=== PATIENT | female | born 2005 | race Two or more races ===

== ENCOUNTER 2023-03-14 18:46 | Emergency (ER) | payer OTHER ==
[2023-03-14 19:01] VITALS: RESP 18; BMI 20.6
[2023-03-14 22:06] VITALS: BP 98/68; PULSE 76; TEMP 98.5
== END 2023-03-14 22:44 | disposition home or self-care (01) ==
LOC: JERFT 18:46
DX: M25.551 Pain in right hip (principal); M25.531 Pain in right wrist; V03.99XA Pedestrian with other conveyance injured in collision with car, pick-up truck or van, unspecified whether traffic or nontraffic accident, initial encounter; Y92.410 Unspecified street and highway as the place of occurrence of the external cause
CPT/HCPCS: 72170-TC-FY; 73110-TC-RT-FY; 73130-TC-RT-FY; 73502-TC-RT-FY; 84703; 99284-25